=== PATIENT | female | born 1930 | race Caucasian/White ===

== ENCOUNTER 2017-02-26 16:52 | Emergency (ER) | payer MEDICARE, OTHER ==
[~2017-02-26] VITALS: Ht 162.6 cm; Wt 69.4 kg
[~2017-02-26 16:52] MED LIST: ASPIRIN325 MG PO; D3 DOTS2000 UNIT PO; DONEPEZIL HCL5 MG PO; GLIMEPIRIDE2 MG PO; NAMENDA10 MG PO; POTASSIUM CHLO10 ME1 PO
[2017-02-26 18:08] LABS: BILIRUBIN,URINE 1+ (NEGATIVE); KETONES,URINE TRACE (NEGATIVE); LEUKOCYTE ESTERASE ,URINE 1+ (NEGATIVE); NITRITE,URINE NEGATIVE (NEGATIVE); URINE UROBILINOGEN 0.2 mg/dL (0.2 - 1)
[2017-02-26 18:11] LABS: CLARITY,URINE HAZY (CLEAR); COLOR,URINE YELLOW (YELLOW); PROTEIN,URINE DIPSTICK 1+ (NEGATIVE)
[2017-02-26 18:17] LABS: BACTERIA,URINE FEW /HPF; EPITHELIAL CELLS,URINE MODERATE /LPF
--- NOTE | 2017-02-26 18:37 | Diagnostic Imaging Report ---
EXAM: XR CHEST 1 VIEW DATE: 02/26/2017 5:19 PM INDICATION: Cough COMPARISON: 03/08/2016 FINDINGS: Lines and Tubes: None Heart and Mediastinum: Tortuosity descending thoracic aorta. Cardiac silhouette stable. Lungs and Pleura: Hilar fullness when compared with previous study. No pneumothorax. Atelectasis lung bases. Bones and Soft Tissues: No acute findings. IMPRESSION: 1. Hilar fullness likely related to portable technique and low lung volumes. Follow-up 2 view chest x-ray with deep inspiration recommended. If finding persists, CT chest with contrast recommended. Signed by: Dr. Dashawn Shannon MD on 02/26/2017 6:33 PM
[2017-02-26 20:44] LABS: BASOPHILS % 0.2 % (0.0-1.0); EOSINOPHILS % 0.2 % (0.0-6.0); HEMOGLOBIN 12.9 g/dL (12.0-16.0); LYMPHOCYTES # (AUTO) 0.3 (1.0-3.2); LYMPHOCYTES % 5.2 % (18.0-39.1); MEAN CORPUSCULAR HEMOGLOBIN 30.4 pg (28-32); MEAN CORPUSCULAR HGB CONC 33.1 g/dL (31-35); MONOCYTES # (AUTO) 0.2 (0.2-0.8); MONOCYTES % 2.3 % (4.4-11.3); NEUTROPHILS % 91.8 % (38.7-80.0); PLATELET COUNT 238 x10e3/uL (140-360); RED BLOOD COUNT 4.24 x10e6/uL (3.6-5.1)
[2017-02-26 20:55] LABS: INR 1.15; PARTIAL THROMBOPLASTIN TIME 31.4 seconds (23.8-35.5); PROTHROMBIN TIME 15.3 seconds (11.9-14.5)
[2017-02-26 21:04] LABS: ALANINE AMINOTRANSFERASE 10 IU/L (0-55); ALBUMIN 3.3 g/dL (3.5-5.0); ALKALINE PHOSPHATASE 54 IU/L (40-150); ANION GAP 12.3 mmol/L (8-16); BLOOD UREA NITROGEN 23 mg/dL (7-26); BUN/CREATININE RATIO 29 (6-25); CALCIUM 8.7 mg/dL (8.4-10.2); CARBON DIOXIDE 23 mmol/L (22-29); CHLORIDE 108 mmol/L (98-107); CREATINE KINASE 27 IU/L (29-168); EST GLOMERULAR FILTRATION RATE > 60 ML/MIN (60-); GLUCOSE 131 mg/dL (74-118); POTASSIUM 3.3 mmol/L (3.5-5.1); SODIUM 140 mmol/L (136-145)
[2017-02-26 21:10] LABS: TROPONIN I 0.004 ng/mL (0-0.300)
[2017-02-26] MEDS ORDERED: SODIUM CHLORIDE 0.9% 500ML 500 ML IV ONE (21:15)
[2017-02-26] MEDS ORDERED: CEFTRIAXONE SOD 1 GM VIAL IV STA (21:15)
[2017-02-26] MEDS ORDERED: ONDANSETRON HCL INJ 2 MG/ML VIAL IV STA (21:19)
[2017-02-26] MEDS ORDERED: PANTOPRAZOLE 40 MG 10ML VIAL IV STA (21:19)
[2017-02-26 22:02] VITALS: BP 103/55
== END 2017-02-26 23:12 | disposition home or self-care (01) ==
LOC: ER 16:52
DX: R10.30 Lower abdominal pain, unspecified (principal); R11.2 Nausea with vomiting, unspecified; N30.91 Cystitis, unspecified with hematuria
CPT/HCPCS: 36415; 71010; 80053; 81001; 82550; 82553; 84484; 85025; 85610; 85730; 87086; 87400; 99284; J0696; J2405; J7040